=== PATIENT | male | born 1955 | race Two or more races ===

== ENCOUNTER 2024-07-06 09:50 | Day surgery (SDC) | payer MEDICAID, SELFPAY ==
[2024-07-05 14:45] VITALS: BMI 24.5
[2024-07-06] VITALS (15 sets, daily range): BP systolic 120–178; BP diastolic 73–96; PULSE 58–72; RESP 12–20; TEMP 36.3–36.9; O2SAT 97–100; BMI 24.2
[2024-07-06] MEDS: RINGERS LACTATED 1000 ML 1,000 ML 60 ML IV (11:03)
--- NOTE | 2024-07-06 15:10 | SUR.PHASEII ---
pt awake, alert, able to follow commands, breathing unlabored, VS stable, discharge instructions given with spouse present, pt able to tolerate oral fluids without difficulty swallowing or n/v, pt discharged via wheelchair with all belongings and copies of discharge paperwork.
== END 2024-07-06 15:10 | disposition home or self-care (01) ==
PROVIDERS: PCP Physician Assistant; Referring Provider Specialist; Visit Provider Specialist
PROC: 0DJD8ZZ Inspection of Lower Intestinal Tract, Via Natural or Artificial Opening Endoscopic (ICD-10-PCS; CPT 45378; principal; 2024-07-06 12:00)
DX: Z12.11 Encounter for screening for malignant neoplasm of colon (principal); D12.5 Benign neoplasm of sigmoid colon; D12.0 Benign neoplasm of cecum; K64.9 Unspecified hemorrhoids; K57.30 Diverticulosis of large intestine without perforation or abscess without bleeding; Z85.038 Personal history of other malignant neoplasm of large intestine; Z86.0100 Personal history of colon polyps, unspecified; Z90.5 Acquired absence of kidney; Z90.49 Acquired absence of other specified parts of digestive tract
CPT/HCPCS: 45385; 45380; J1200; J2250; J3010; J7120